=== PATIENT | male | born 1985 | race American Indian/Alaskan Native ===

== ENCOUNTER 2016-10-07 07:23 | Emergency (ER) | payer MEDICARE ==
[2016-10-07] MEDS ORDERED: TYLENOL ONE (07:43)
[2016-10-07] MEDS ORDERED: TYLENOL PO ONE (07:44)
--- NOTE | 2016-10-07 08:19 | Emergency Department Report ---
HPI - General Chief Complaint: Sore Throat Time Seen by Provider: 10/07/16 08:13 - HPI HPI: 31-year-old male presents today with headache, sore throat since yesterday. Positive for gradual onset of headache. Denies any sick contacts. Positive for painful swallowing and fever, Tmax = 102.5. The patient tried NyQuil and Tylenol without relief. He admits to body aches and nausea without vomiting. Denies cough, runny nose, ear pain, chest pain, shortness of breath, abdominal pain. ED Past Medical Hx - Past Medical History Previous Medical History?: No - Surgical History Past Surgical History?: No - Social History Smoking Status: Current Every Day Smoker Substance Use Type: Alcohol, Non Opiate Pain - Medications Home Medications: Home Medications Medication Instructions Recorded Confirmed Last Taken Type Amoxicillin [Amoxicillin TAB] 875 mg PO BID #20 tablet 10/07/16 Unknown Rx Lidocaine Viscous 2% 15 ml MM TID #100 ml 10/07/16 Unknown Rx ED Review of Systems ROS: Stated complaint: HEADACHE/SORE THROAT Other details as noted in HPI Constitutional: chills, fever Eyes: denies: eye pain ENT: throat pain. denies: ear pain, congestion Respiratory: denies: cough, shortness of breath, wheezing Cardiovascular: denies: chest pain, palpitations Endocrine: no symptoms reported Gastrointestinal: nausea. denies: abdominal pain, vomiting Skin: denies: rash Neurological: headache. denies: weakness Physical Exam - Physical Exam Vital Signs: Vital Signs 10/07/16 10/07/16 07:41 07:46 Temperature 102.4 F H Pulse Rate 94 H Respiratory 20 18 Rate Blood Pressure 121/83 O2 Sat by Pulse 100 Oximetry Physical Exam: GENERAL: The patient is well-developed and well-nourished. Patient is in NAD. HEAD: Normocephalic. Atraumatic. EYES: PERRL. EARS: External auditory canals and tympanic membranes clear; hearing grossly intact. NOSE: Normal nasal mucosa with no nasal discharge. THROAT: Positive for erythema, and tonsillomegaly with tonsillar exudates. NECK: Positive anterior cervical lymphadenopathy. CHEST/LUNGS: Clear to auscultation throughout. HEART/CARDIOVASCULAR: Regular rate and rhythm. ABDOMEN: Abdomen is soft, nontender. Bowel sounds normoactive. No guarding or rebound tenderness. EXTREMITIES: Peripheral pulses intact. Capillary refill less than 2 seconds. ED Course Vital Signs 10/07/16 10/07/16 07:41 07:46 Temperature 102.4 F H Pulse Rate 94 H Respiratory 20 18 Rate Blood Pressure 121/83 O2 Sat by Pulse 100 Oximetry ED Medical Decision Making - Medical Decision Making 31-year-old male presents today with headache and sore throat since yesterday. His rapid strep test and rapid flu test is negative. Patient is in no acute distress at this time. Patient is positive for fever, no cough, tonsillomegaly with tonsillar exudates and anterior cervical lymphadenopathy. He will be discharged home and is encouraged to follow up with a primary care provider. He is recommended to alternate Tylenol and Motrin for better fever control. Patient will be sent home on amoxicillin and is encouraged to return to the emergency room for any worsening symptoms. Critical care attestation.: If time is entered above; I have spent that time in minutes in the direct care of this critically ill patient, excluding procedure time. ED Disposition Clinical Impression: Pharyngitis Qualifiers: Pharyngitis/tonsillitis etiology: unspecified etiology Qualified Code(s): J02.9 - Acute pharyngitis, unspecified Disposition: DISCHARGED TO HOME OR SELFCARE Is pt being admited?: No Does the pt Need Aspirin: No Condition: Stable Instructions: Pharyngitis (ED), Strep Throat (ED) Additional Instructions: Follow-up with primary care provider. Return to the emergency department if symptoms worsen. Prescriptions: Amoxicillin [Amoxicillin TAB] 875 mg PO BID #20 tablet Lidocaine Viscous 2% 15 ml MM TID #100 ml Referrals: HALIMA HOU MD [Primary Care Provider] - 3-5 Days NU RIVAS MD [Staff Physician] - 3-5 Days Forms: Work/School Release Form(ED) Time of Disposition: 09:04
[2016-10-07] MEDS ORDERED: MOTRIN PO ONE ×2 (08:44→08:45)
[2016-10-07 09:07] VITALS: BP 120/74
== END 2016-10-07 09:16 | disposition home or self-care (01) ==
LOC: ED 07:23
DX: J02.9 Acute pharyngitis, unspecified (principal); R51 Headache; F17.200 Nicotine dependence, unspecified, uncomplicated
CPT/HCPCS: 87116; 87400; 87430; 99283

== ENCOUNTER 2018-11-23 01:43 | Emergency (ER) | payer MEDICARE ==
[2018-11-23 01:51] VITALS: BP 140/79
--- NOTE | 2018-11-23 02:30 | Emergency Department Report ---
ED ENT HPI - General Chief complaint: Dental/Oral Stated complaint: TOOTHACHE Time Seen by Provider: 11/23/18 02:25 Source: patient Mode of arrival: Ambulatory Limitations: No Limitations - History of Present Illness Initial comments: 33-year-old [place] Indonesian male presents to the emergency room for tooth pain 1 week. Patient reports he has impacted wisdom teeth needs to have surgery to have them removed. Patient denies any fever or chills denies any gum swelling is no jaw swelling. MD complaint: tooth pain -: week(s) (1) Location: tooth # (31,16) Severity scale (0 -10): 8 Quality: aching Consistency: intermittent Improves with: none Worsens with: none Associated Symptoms: toothache. denies: gum swelling - Related Data Previous Rx's Medication Instructions Recorded Last Taken Type Amoxicillin [Amoxicillin TAB] 875 mg PO BID #20 tablet 10/07/16 Unknown Rx Lidocaine Viscous 2% 15 ml MM TID #100 ml 10/07/16 Unknown Rx Ibuprofen [Motrin 600 MG tab] 600 mg PO Q8H PRN #30 tablet 11/23/18 Unknown Rx Allergies Allergy/AdvReac Type Severity Reaction Status Date / Time No Known Allergies Allergy Verified 10/07/16 07:47 ED Dental HPI - General Chief complaint: Dental/Oral Stated complaint: TOOTHACHE Time Seen by Provider: 11/23/18 02:25 Source: patient Mode of arrival: Ambulatory Limitations: No Limitations - Related Data Previous Rx's Medication Instructions Recorded Last Taken Type Amoxicillin [Amoxicillin TAB] 875 mg PO BID #20 tablet 10/07/16 Unknown Rx Lidocaine Viscous 2% 15 ml MM TID #100 ml 10/07/16 Unknown Rx Ibuprofen [Motrin 600 MG tab] 600 mg PO Q8H PRN #30 tablet 11/23/18 Unknown Rx Allergies Allergy/AdvReac Type Severity Reaction Status Date / Time No Known Allergies Allergy Verified 10/07/16 07:47 ED Review of Systems ROS: Stated complaint: TOOTHACHE Other details as noted in HPI Comment: All other systems reviewed and negative ENT: dental pain ED Past Medical Hx - Past Medical History Hx Headaches / Migraines: Yes - Surgical History Past Surgical History?: No - Social History Smoking Status: Current Every Day Smoker Substance Use Type: None - Medications Home Medications: Home Medications Medication Instructions Recorded Confirmed Last Taken Type Amoxicillin [Amoxicillin TAB] 875 mg PO BID #20 tablet 10/07/16 Unknown Rx Lidocaine Viscous 2% 15 ml MM TID #100 ml 10/07/16 Unknown Rx Ibuprofen [Motrin 600 MG tab] 600 mg PO Q8H PRN #30 tablet 11/23/18 Unknown Rx ED Physical Exam - General Limitations: No Limitations General appearance: alert, in no apparent distress - Head Head exam: Present: atraumatic, normocephalic - Expanded ENT Exam Expanded Teeth exam: Present: other (tooth 31 and 16 are partially impacted) - Neck Neck exam: Present: normal inspection. Absent: lymphadenopathy - Neurological Exam Neurological exam: Present: alert, oriented X3 - Psychiatric Psychiatric exam: Present: normal affect, normal mood - Skin Skin exam: Present: warm, dry, intact, normal color. Absent: rash ED Course Vital Signs 11/23/18 01:49 Temperature 99.2 F Pulse Rate 77 Respiratory 18 Rate Blood Pressure 140/79 O2 Sat by Pulse 98 Oximetry Critical care attestation.: If time is entered above; I have spent that time in minutes in the direct care of this critically ill patient, excluding procedure time. ED Disposition Clinical Impression: Impacted third molar tooth Disposition: DC-01 TO HOME OR SELFCARE Is pt being admited?: No Does the pt Need Aspirin: No Condition: Stable Instructions: Toothache (ED) Additional Instructions: Please take pain medication as needed. It's very important for you to follow up with the dentist or oral surgeon. I have listed information below for your convenience. Prescriptions: Ibuprofen [Motrin 600 MG tab] 600 mg PO Q8H PRN #30 tablet PRN Reason: Pain , Severe (7-10) Referrals: DIANNE KUNZ MD [Primary Care Provider] - 3-5 Days [facility] [Outside] - 3-5 Days [facility] [Outside] - 3-5 Days [facility] [Outside] - 3-5 Days
[2018-11-23] MEDS ORDERED: IBUPROFEN PO ONE (02:31)
== END 2018-11-23 02:42 | disposition home or self-care (01) ==
LOC: ED 01:43
DX: K01.1 Impacted teeth (principal); F17.200 Nicotine dependence, unspecified, uncomplicated; G43.909 Migraine, unspecified, not intractable, without status migrainosus; Z79.899 Other long term (current) drug therapy
CPT/HCPCS: 99282

== ENCOUNTER 2021-04-14 13:22 | Emergency (ER) | payer MEDICARE | END 2021-04-14 19:18 | disposition left against medical advice (07) | LOC: ED 13:22 | DX: R51.9 Headache, unspecified (principal); Z53.21 Procedure and treatment not carried out due to patient leaving prior to being seen by health care provider ==